=== PATIENT | female | born 1980 | race Caucasian/White ===

== ENCOUNTER 2019-12-16 10:31 | Outpatient (CLI) | payer BC ==
--- NOTE | 2019-12-16 15:46 | MRI ---
MRI OF THE RIGHT SHOULDER WITHOUT CONTRAST: INDICATION: History of a fall at Thanksgiving with persistent right shoulder pain. FINDINGS: There is a very low-grade bursal surface partial-thickness tear involving the mid supraspinatus at th e footprint on image 10 of series 4. There is moderate tendinosis of the supraspinatus tendon. No f ull-thickness tear is evident. No muscular atrophy is evident. There is mild AC joint osteoarthrosi s. There is a type II acromion. Biceps tendon is located. Superior glenoid labrum and biceps ancho r complex is intact. No paralabral cyst is demonstrated. Glenohumeral articular surface is normal-a ppearing. The inferior glenohumeral labral ligamentous complex appears intact. IMPRESSION: 1. Low-grade bursal surface partial-thickness tear involving the mid supraspinatus at the footprint on image 10 of series 4. There is moderate tendinosis of the supraspinatus tendon. 2. Mild acromioclavicular joint osteoarthrosis. POS: CET
== END 2019-12-16 10:32 | disposition home or self-care (01) ==
LOC: SCSMRI 10:31
PROVIDERS: ATTEND Orthopaedic Surgery
DX: M75.41 Impingement syndrome of right shoulder (principal); M19.011 Primary osteoarthritis, right shoulder; M75.111 Incomplete rotator cuff tear or rupture of right shoulder, not specified as traumatic; M67.813 Other specified disorders of tendon, right shoulder